=== PATIENT | female | born 1960 | race Caucasian/White ===

== ENCOUNTER 2021-12-14 18:47 | Emergency (ER) | payer SELFPAY ==
[2021-12-15 17:38] LABS: SARS-CoV-2 PCR by NAA Not Detected (NotDetected)
== END 2021-12-14 19:41 | disposition home or self-care (01) ==
LOC: ERS 18:47
DX: R50.9 Fever, unspecified (principal); Z20.822 Contact with and (suspected) exposure to COVID-19
CPT/HCPCS: 99283; U0003; U0005